=== PATIENT | male | born 1975 | race Two or more races ===

== ENCOUNTER 2022-11-19 21:06 | Emergency (ER) | payer BC, MEDICAID ==
[~2022-11-19] VITALS: Ht 165.1 cm; Wt 75.0 kg
[2022-11-19] MEDS ORDERED: cloNIDine HCL 0.1 MG TAB PO ONE (21:30)
[2022-11-20 00:19] VITALS: BP 144/77; PULSE 98; RESP 16; TEMP 98; O2SAT 98
== END 2022-11-20 00:21 | disposition home or self-care (01) ==
LOC: ER 21:06 → EEVIPCON 21:06 → ER 11-20 00:19
DX: S01.01XA Laceration without foreign body of scalp, initial encounter (principal); F15.90 Other stimulant use, unspecified, uncomplicated; Y04.2XXA Assault by strike against or bumped into by another person, initial encounter; Y93.89 Activity, other specified; Y92.89 Other specified places as the place of occurrence of the external cause; Y99.8 Other external cause status
CPT/HCPCS: 70450; 70486; 71250; 72125; 74176